=== PATIENT | female | born 1965 | race African-American/Black ===

== ENCOUNTER 2016-09-08 16:57 | Emergency (ER) | payer SELFPAY ==
[~2016-09-08] VITALS: Ht 170.2 cm; Wt 67.1 kg
[~2016-09-08 16:57] MED LIST: ALBUTEROL SULF8.5 GM INH; AMOXICILLIN500 MG ORAL; BACTRIM DS TAB1 EAC1 ORAL; BACTRIM-DS1 EA PO; CEPHALEXIN500 MG PO; CYCLOBENZAPRINE10 MG ORAL; ERYTHROMYCIN3.5 GM LEFT EYE; IBUPROFEN600 M1 PO; IBUPROFEN600 MG ORAL; KEFLEX500 MG ORAL; NAPROSYN500 M1 ORAL; NKM; NORCO 5-325 TA1 EACH PO; PREDNISONE10 MG ORAL; PSEUDOEPHEDRINE60 MG PO; TYLENOL325 MG ORAL; ZITHROMAX250 MG ORAL; [UNRECOGNIZED DRUG - REMARK]; soma
[2016-09-08] MEDS ORDERED: Bacitracin Oint UD TOPIC ONE (18:00)
[2016-09-08] MEDS ORDERED: Tylenol #3 tab (300mg/30mg) ORAL ONE (18:00)
[2016-09-08] MEDS ORDERED: TdaP Vaccine 0.5ml Syr IM ONE (18:00)
[2016-09-08] MEDS ORDERED: AUGMENTIN 500-1 EACH ORAL (18:32)
[2016-09-08] MEDS ORDERED: TYLENOL EXTRA500 MG ORAL (18:32)
[2016-09-08 18:57] VITALS: BP 104/67
[2016-09-08 18:58] VITALS: BP 101/63
--- NOTE | 2016-09-08 21:52 | Emergency Room Report ---
History of Present Illness General Chief Complaint: Animal Bite Source: Patient Present Illness HPI The patient is a 50-year-old female presenting with cat bites to both hands. The patient states that her cat became agitated and began biting her hands. Patient states that the cat has had all her shots. Patient describes pain as a 10 out of 10 dull ache to both hands. She has noted bleeding. The patient denies numbness or tingling of the extremities. Patient denies any other symptoms including N, V, F, chills, CP, SOB Allergies: Coded Allergies: ASPIRIN (Verified Allergy, Mild, Hives, 09/14/12) Patient History Past Medical History: see triage record Pertinent Family History: none Reviewed Nursing Documentation: PMH: Agreed, PSxH: Agreed Nursing Documentation-PMH Hx Cardiac Problems: Yes - PNEUMONIA, MIGRAINES Hx Asthma: Yes Hx COPD: Yes Review of Systems All Other Systems: negative except mentioned in HPI Physical Exam Vital Signs Date Time Temp Pulse Resp B/P Pulse Ox O2 Delivery O2 Flow Rate FiO2 09/08/16 17:26 98.2 74 16 101/63 100 Room Air Sp02 EP Interpretation: reviewed, normal General Appearance: no apparent distress, alert, GCS 15, non-toxic Head: normocephalic, atraumatic Eyes: bilateral eye PERRL, bilateral eye normal inspection ENT: hearing grossly normal, normal pharynx, no angioedema, normal voice Neck: full range of motion, supple/symm/no masses Respiratory: chest non-tender, lungs clear, normal breath sounds, speaking full sentences Cardiovascular #1: regular rate, rhythm, no edema Musculoskeletal: normal range of motion, swelling - R hand, tender - TTP over bilat hands Neurologic: alert, oriented x3, responsive, motor strength/tone normal, sensory intact, speech normal Psychiatric: judgement/insight normal, memory normal, mood/affect normal, no suicidal/homicidal ideation Skin: normal turgor, laceration - multiple punctate lesions to bilat hands dorsal surface. Minimal bleeding. Lymphatic: no adenopathy Medical Decision Making PA Attestation Dr. Carl is my supervising physician. Patient management was discussed with my supervising physician Diagnostic Impression: Primary Impression: Bite by animal ER Course The patient is a 50-year-old female presenting with cat bites to both hands. Ddx considered include but not limited to animal bite, cellulitis, abscess, tendon injury, fracture PE: vitals WNL. NAD. multiple punctate lesions to bilat hands dorsal surface. Minimal bleeding. R hand is erythematous with edema. SILT. Full AROM bilat. The patient is given a tetanus vaccination. Wounds are irrigated copiously with normal saline and Betadine. Bacitracin is applied and sterile dressing is used. Pt given tylenol #3 for pain in the ED. The pt will be DC'ed home with Augmentin and tylenol prescription. ER precautions given . Last Vital Signs Date Time Temp Pulse Resp B/P Pulse Ox O2 Delivery O2 Flow Rate FiO2 09/08/16 18:58 98.2 16 101/63 100 Room Air 09/08/16 18:57 77 Status: improved Disposition: HOME, SELF-CARE Condition: Improved Scripts Acetaminophen* (TYLENOL EXTRA STRENGTH*) 500 Mg Tablet 500 MG ORAL Q8H Y for Prn Headache/Temp > 101, #30 TAB 0 Refills Prov: BAILEY GALEANA 09/08/16 Amoxicillin/Potassium Clav 500-125 Tablet* (AUGMENTIN 500-125 TABLET*) 1 Each Tablet 1 TAB ORAL THREE TIMES A DAY, #15 TAB Prov: BAILEY GALEANA 09/08/16 Referrals: NOT CHOSEN IPA/MD,REFERRING (PCP) Patient Instructions: Animal Bite Additional Instructions: I discussed my findings with the patient. All questions and concerns have been answered. Treatment and medication compliance have been addressed. I advised the patient that they need to follow up with PMD in 3-5 days. Return to ED if symptoms worsen, new symptoms arise, or if needed for any reason. Patient verbalized understanding of discharge instructions. BAILEY GALEANA Sep 08, 2016 21:52
== END 2016-09-08 18:59 | disposition home or self-care (01) ==
LOC: EMR 17:45
DX: S61.432A Puncture wound without foreign body of left hand, initial encounter (principal); S61.431A Puncture wound without foreign body of right hand, initial encounter; W55.01XA Bitten by cat, initial encounter; Y92.9 Unspecified place or not applicable; Z23 Encounter for immunization; J44.9 Chronic obstructive pulmonary disease, unspecified; J45.909 Unspecified asthma, uncomplicated
CPT/HCPCS: 90471; 90715; 99284

== ENCOUNTER 2020-08-05 02:43 | Emergency (ER) | payer MEDICAID ==
[~2020-08-05] VITALS: Ht 170.2 cm; Wt 68.0 kg
[~2020-08-05 02:43] MED LIST changes: +AUGMENTIN 500-1 EACH ORAL; +TYLENOL EXTRA500 MG ORAL
--- NOTE | 2020-08-05 02:50 | NUR ---
ED Nurse Note: pt walked into the ed due to her ring stuck RT hand 5th digit . Pt said she tried to take it out but it was unsuccessful. PT stated throbbing, swelling of finger. Pt finger pink, warm to touch
--- NOTE | 2020-08-05 02:59 | NUR ---
ER DISCHARGE NOTE: Patient is cleared to be discharged per ERMD, pt is aox4, on room air, with stable vital signs. pt was given dc instructions, pt was able to verbalize understanding, pt id band removed without complications. pt is able to ambulate with steady gait. pt took all belongings.ED Nurse Note:
--- NOTE | 2020-08-05 03:00 | Emergency Room Report ---
History of Present Illness General Chief Complaint: Foreign Body Present Illness HPI 54-year-old female here with a ring stuck on her right fifth digit. Patient struck the ring against the side of a door flattening the ring and says she has been unable to remove it for the last 20 minutes. No focal numbness or weakness. No pain. No injury to the finger Allergies: Coded Allergies: ASPIRIN (Verified Allergy, Mild, Hives, 09/14/12) COVID-19 Screening Contact w/high risk pt: No Experienced COVID-19 symptoms?: No COVID-19 Testing performed GAGE DESIGNER: No Nursing Documentation-PMH Hx Cardiac Problems: Yes - PNEUMONIA, MIGRAINES Hx Asthma: Yes Hx COPD: Yes Review of Systems All Other Systems: negative except mentioned in HPI Physical Exam Vital Signs Date Time Temp Pulse Resp B/P (MAP) Pulse Ox O2 Delivery O2 Flow Rate FiO2 08/05/20 02:46 98.4 78 16 124/75 (91) 98 Room Air Sp02 EP Interpretation: reviewed, normal General Appearance: no apparent distress, alert, non-toxic Head: normocephalic, atraumatic Eyes: bilateral eye normal inspection, bilateral eye PERRL ENT: normal pharynx, no angioedema, normal voice Neck: supple/symm/no masses Cardiovascular #1: no edema Cardiovascular #2: 2+ carotid (R), 2+ carotid (L), 2+ radial (R), 2+ radial (L), 2+ dorsalis pedis (R), 2+ dorsalis pedis (L) Musculoskeletal: normal range of motion, gait/station normal, non-tender, other - Flat and ring wrapped around the proximal aspect of the right fifth digit. Normal perfusion to the digit. Normal capillary refill. Normal range of motion Neurologic: alert, motor strength/tone normal, sensory intact, speech normal Psychiatric: judgement/insight normal, memory normal, mood/affect normal, no suicidal/homicidal ideation Lymphatic: no adenopathy Medical Decision Making Diagnostic Impression: Primary Impression: Foreign body ER Course 54-year-old female here with a ring stuck on the proximal right fifth digit. The ring was easily removed using a ring cutter. Patient was given the ring back and told to bring into a jeweler for repair. She had normal range of motion and no injury to the digit whatsoever. She had normal capillary refill and was neurovascularly intact before and after the ring was removed. Patient was discharged in good condition. Last Vital Signs Date Time Temp Pulse Resp B/P (MAP) Pulse Ox O2 Delivery O2 Flow Rate FiO2 08/05/20 02:46 98.4 78 16 124/75 (91) 98 Room Air Disposition: HOME, SELF-CARE Condition: Stable Raul Carey M.D. Aug 05, 2020 03:00
[2020-08-05 03:05] VITALS: BP 124/75
== END 2020-08-05 02:59 | disposition home or self-care (01) ==
LOC: EMR 02:54
DX: S60.456A Superficial foreign body of right little finger, initial encounter (principal); X58.XXXA Exposure to other specified factors, initial encounter; Y93.9 Activity, unspecified; Y92.9 Unspecified place or not applicable; J44.9 Chronic obstructive pulmonary disease, unspecified; Z88.6 Allergy status to analgesic agent
CPT/HCPCS: 99281